=== PATIENT | male | born 1960 | race Caucasian/White ===

== ENCOUNTER 2020-03-20 08:24 | Inpatient (IN) | payer OTHER ==
[~2020-03-20] VITALS: Ht 190.5 cm; Wt 90.7 kg
[2020-03-20] MEDS ORDERED: LOVA10TA PO (08:54)
[2020-03-20] MEDS ORDERED: HYDR-3980 PO (08:54)
--- NOTE | 2020-03-20 09:15 | NUR ---
MS/RN NOTES ADMITTED A MALE PATIENT, AMBULATORY HOME. ALERT AND ORIENTED X4. NO APPARENT RESPIRATORY DISTRESS NOTED. NO COMPLAINED OF PAIN NOTED. SKIN ASSESSMENT WAS DONE. INITIAL VITAL SIGN WAS TAKEN AND RECORDED BP 150/96 P 80 RR 18 TEMP 98.8 SAO2 97%. PATIENT IS FOR DAY SURGERY. WILL CONTINUE TO MONITOR.
--- NOTE | 2020-03-20 11:20 | NUR ---
MS/RN NOTES PATIENT IS OUT IN THE UNIT POT LINING SUPERVISOR BY OR NURSE. PATIENT IN NO APPARENT RESPIRATORY DISTRESS NOTED. NO COMPLAINED OF PAIN NOTED.
[2020-03-20] MEDS ORDERED: TRANEXAMIC ACID 3,000 MG in SODIUM CHLORIDE IRRIG SOLUTION 70 ML IR ONE (12:00)
[2020-03-20] MEDS ORDERED: BACITRACIN 50000 UNITS/VIAL ONE ×2 (12:37→13:20)
[2020-03-20] MEDS ORDERED: FENTANYL PF 100MCG/2ML AMPUL ONE ×2 (12:56→15:01)
[2020-03-20] MEDS ORDERED: KETAMINE HCL (500MG/10ML) 50 MG/ML VIAL ONE (12:57)
[2020-03-20] MEDS ORDERED: SCOPOLAMINE PATCH 1 MG/72HR TD ONE (12:57)
[2020-03-20] MEDS ORDERED: diphenhydrAMINE HCL 25 MG CAPSULE PO PRN (14:00)
[2020-03-20] MEDS ORDERED: MAGNESIUM HYDROXIDE 30 ML UDC PO PRN (14:00)
[2020-03-20] MEDS ORDERED: CLONIDINE HCL 0.1 MG TABLET PO PRN (14:00)
[2020-03-20] MEDS ORDERED: CYCLOBENZAPRINE 10 MG TABLET PO PRN (14:00)
[2020-03-20] MEDS ORDERED: MAG HYDROX/AL HYDROX/SIMETH 30 ML UDC PO PRN (14:00)
[2020-03-20] MEDS ORDERED: ONDANSETRON HCL/PF 4 MG/2 ML VIAL IV PRN (14:00)
[2020-03-20] MEDS ORDERED: HYDROMORPHONE 1 MG/1 ML DISP.SYRIN ONE (14:41)
[2020-03-20] MEDS ORDERED: BISACODYL SUPP (10 MG) 10 MG/SUPP.RECT SUPP.RECT RC PRN (15:00)
[2020-03-20] MEDS ORDERED: SENNOSIDES 8.6 MG TABLET PO PRN (15:00)
[2020-03-20] MEDS ORDERED: ACETAMINOPHEN 325 MG TABLET PO PRN (15:00)
--- NOTE | 2020-03-20 15:40 | NUR ---
MS/RN NOTES PATIENT CAME BACK FROM OR. RECEIVED REPORT FROM ANNA MERRILL DRESSING NURSE PRIOR TO DISCHARGED, WEIGHT BEARING TOLERATED AND MEDICATION WAS FAXED BY ANNA TO THE PHARMACY. V/S BP 106/82 RR 16 TEMP 98.1 SAO2 97% HR 77. WILL CONTINUE TO MONITOR.
--- NOTE | 2020-03-20 15:45 | NUR ---
MS/RN NOTES DR. NICHOL WITT DIET, TRAPEZOID BED, AND WALKER. NOTED AND CARRIED OUT. Addendum: 03/21/20 at 0743 by RYAN TUTTLE RN ERROR
--- NOTE | 2020-03-20 15:45 | NUR ---
MS/RN NOTES DR. COX REGULAR DIET, TRAPEZOID BED, AND WALKER. NOTED AND CARRIED OUT.
[2020-03-20] MEDS: DOCUSATE SODIUM 100 MG CAPSULE PO SCH (16:10)
[2020-03-20] MEDS: IV LR 1000 ML 1,000 ML IV PRN (16:10)
[2020-03-20] MEDS: HYDROMORPHONE 1 MG/1 ML DISP.SYRIN SQ PRN ×2 (16:11→20:48)
[2020-03-20] MEDS: HYDROCODONE/APAP 10/325MG TABLET PO PRN (19:07)
--- NOTE | 2020-03-20 19:33 | NUR ---
MS/RN CLOSING NOTES PATIENT IS ON BED. ALERT AND ORIENTED X4. PATIENT IN NO APPARENT RESPIRATORY DISTRESS NOTED. NO COMPLAINED OF PAIN NOTED AT THIS TIME. IV ACCESS AT LEFT FOREARM # 20 G WITH IV FLUID OF LR 1L AT 100ML/HR ON AND INFUSING WELL. SEEN AND EXAMINED BY MD WITH ORDERS MADE AND CARRIED OUT. ALL DUE MEDICATION WAS ORDER. SAFETY PRECAUTION WAS IN PLACED. BED IN LOWEST POSITION AND LOCKED. SIDERAILS UP X2. CALL LIGHTS WITHIN REACH. WILL ENDORSED TO PRODUCT TESTER [employer] FOR ALESSANDRA.
--- NOTE | 2020-03-20 19:36 | NUR ---
MS RN OPENING NOTES PATIENT AWAKE IN BED. A/OX4. ON RA; NO C/O SOB; BREATHING IS EVEN AND UNLABORED. NO C/O PAIN AT THIS TIME. IV PRESENT ON LEFT FA, SIZE 20, INTACT & PATENT WITH LR RUNNING AT 100 ML/HR. SURGICAL DRESSING ON RIGHT HIP DRY AND INTACT; LEG OFFLOADED WITH PILLOWS. SAFETY MEASURES IN PLACE AND PATIENT'S NEEDS MET. BED LOCKED, HOB ELEVATED, SIDE RAILS X2, CALL LIGHT WITHIN REACH. WILL CONTINUE TO MONITOR.
[2020-03-20 20:00] VITALS: BP 141/87
[2020-03-20] MEDS: ANCEF 1 GM/50 ML D5W IV SCH ×2 (20:58)
[2020-03-20] MEDS: FAMOTIDINE (20 MG) 20 MG TABLET PO SCH (20:59)
[2020-03-20] MEDS: TAMSULOSIN 0.4 MG CAP.SR.24H PO SCH (21:05)
[2020-03-20] MEDS: DRONABINOL (2.5 MG) 2.5 MG CAPSULE PO SCH (21:06)
[2020-03-20] MEDS: MENTHOL/CETYLPYRD (CEPACOL) 1 LOZ LOZENGE PO PRN (22:48)
[2020-03-21] MEDS: HYDROMORPHONE 1 MG/1 ML DISP.SYRIN SQ PRN ×6 (01:22→21:14)
[2020-03-21] MEDS: ZOLPIDEM TARTRATE 5 MG TABLET PO PRN (02:22)
[2020-03-21] MEDS: LORAZEPAM 1 MG TABLET PO PRN (04:13)
[2020-03-21] MEDS: ANCEF 1 GM/50 ML D5W IV SCH ×2 (05:21)
--- NOTE | 2020-03-21 07:40 | NUR ---
MS/RN OPENING NOTES RECEIVED PATIENT ON BED AWAKE ALERT AND ORIENTED X4. PATIENT IN NO APPARENT RESPIRATORY DISTRESS NOTED. NO COMPLAINED OF PAIN AT THIS TIME. WILL CONTINUE TO MONITOR.
--- NOTE | 2020-03-21 07:50 | NUR ---
MS RN CLOSING NOTES PATIENT AWAKE. A/OX4. ON RA; NO C/O SOB; BREATHING IS EVEN AND UNLABORED. NO C/O PAIN AT THIS TIME. IV PRESENT ON LEFT FA, SIZE 20, INTACT & PATENT WITH LR RUNNING AT 100 ML/HR. SURGICAL DRESSING ON RIGHT HIP DRY AND INTACT. SAFETY MEASURES IN PLACE AND PATIENT'S NEEDS MET. BED LOCKED, HOB ELEVATED, SIDE RAILS X2, CALL LIGHT WITHIN REACH. ENDORSED TO DAY SHIFT RN PLAN OF CARE.
[2020-03-21 08:00] VITALS: BP 132/70
[2020-03-21] MEDS: ASPIRIN 325 MG TABLET PO SCH ×2 (08:47→16:59)
[2020-03-21] MEDS: DOCUSATE SODIUM 100 MG CAPSULE PO SCH ×2 (08:47→16:59)
[2020-03-21] MEDS: FAMOTIDINE (20 MG) 20 MG TABLET PO SCH ×4 (08:47→21:23)
[2020-03-21] MEDS: HYDROCODONE/APAP 10/325MG TABLET PO PRN ×2 (09:54→15:47)
[2020-03-21] MEDS: METOPROLOL SUCCINATE 50 MG TAB.SR.24H PO SCH (09:54)
[2020-03-21 09:59] LABS: BASOPHILS % (AUTO) 0.2 % (0.0-2.0); EOSINOPHILS % (AUTO) 0.2 % (0.0-6.0); HEMATOCRIT 39 % (39-51); HEMOGLOBIN 13.1 g/dL (13.5-17.5); LYMPHOCYTES # (AUTO) 2.1 /CMM (0.8-4.8); LYMPHOCYTES % (AUTO) 19.4 % (20.0-44.0); MEAN CORPUSCULAR HGB CONC 34 g/dl (31.0-36.0); MEAN CORPUSCULAR VOLUME 96 fL (80-96); MONOCYTES # (AUTO) 1.1 /CMM (0.1-1.30); MONOCYTES % (AUTO) 10.3 % (2.0-12.0); NEUTROPHILS # (AUTO) 7.6 /CMM (1.8-8.9); NEUTROPHILS % (AUTO) 69.9 % (43.0-81.0); PLATELET COUNT (AUTO) 258 /CMM (150-450); RED BLOOD CELL COUNT(AUTO) 4.08 MIL/uL (4.5-6.0); WHITE BLOOD COUNT (AUTO) 10.8 K/uL (4.3-11.0)
[2020-03-21 10:10] LABS: CALCIUM, SERUM 8.7 mg/dL (8.5-10.1); CREATININE 1.3 mg/dL (0.6-1.3); POTASSIUM 3.6 mmol/L (3.5-5.1)
[2020-03-21 16:00] VITALS: BP 131/74
--- NOTE | 2020-03-21 16:56 | NUR ---
MS/RN NOTES TEMP 100.1 PATIENT REFUSED TO TAKE TYLENOL 650MG 1 TAB P.O. PATIENT COMPLAINED OF SORE THROAT MD IS AWARE. WILL CONTINUE TO MONITOR.
[2020-03-21] MEDS: IV LR 1000 ML 1,000 ML IV PRN (17:00)
--- NOTE | 2020-03-21 17:11 | NUR ---
Patient is alert and oriented, lives locally with a roommate. He used a cane with ambulation prior to admission, he is independent with adl's. POD#1 s/p right JOSEPHINE, current dc plan is ARU vs home . Addendum: 03/21/20 at 1712 by KISHORE PRYOR RN Amended: Links added.
--- NOTE | 2020-03-21 17:25 | NUR ---
MS/RN NOTES TATI JAMILAH ORDER CEPACOL 1 LOZENGES Q 4HRS PRN. NOTED AND CARRIED OUT.
--- NOTE | 2020-03-21 17:29 | NUR ---
MS/RN NOTES DILAUDID 1MG SQ PATIENT REQUEST TO ADMINISTERED IV. MD IS AWARE.
--- NOTE | 2020-03-21 19:32 | NUR ---
MS RN OPENING NOTES PATIENT AWAKE IN BED. A/OX4. ON RA; NO C/O SOB; BREATHING IS EVEN AND UNLABORED. PATIENT C/O SLIGHT RIGHT HIP PAIN. SURGICAL DRESSING ON RIGHT HIP DRY AND INTACT. IV PRESENT ON LEFT FA, SIZE 20, INTACT & PATENT, WITH LR RUNNING AT 100 ML/HR. SAFETY MEASURES IN PLACE AND PATIENT'S NEEDS MET. BED LOCKED, HOB ELEVATED, SIDE RAILS X2, CALL LIGHT WITHIN REACH. WILL CONTINUE TO MONITOR.
--- NOTE | 2020-03-21 19:38 | NUR ---
MS/RN CLOSING NOTES PATIENT IS ALERT AND ORIENTED X4. PATIENT IN NO APPARENT RESPIRATORY DISTRESS NOTED. NO COMPLAINED OF PAIN AT THIS TIME. IV ACCESS AT LEFT FOREARM # 20 G WITH IV FLUID OF OF LR AT 100 ML/HR ON AND INFUSING WELL. SEEN AND EXAMINED BY MD WITH ORDERS MADE AND CARRIED OUT. ALL DUE MEDICATIONS WAS GIVEN. SAFETY PRECAUTIONS WAS IN PLACED. BED IN LOWEST POSITION AND LOCKED. SIDERAILS UP X 2. CALL LIGHT WITHIN REACH. LATEST TEMP 100.2. WILL ENDORSED TO RESTAURANT HOSPITALITY MANAGER FOR ALESSANDRA.
[2020-03-21] MEDS ORDERED: MENTHOL/CETYLPYRD (CEPACOL) 1 LOZ LOZENGE PO PRN (20:00)
[2020-03-21 20:38] VITALS: BP 125/65
[2020-03-21] MEDS: MENTHOL/CETYLPYRD (CEPACOL) 1 LOZ LOZENGE PO PRN (21:13)
[2020-03-21] MEDS: TAMSULOSIN 0.4 MG CAP.SR.24H PO SCH (21:13)
--- NOTE | 2020-03-21 21:14 | NUR ---
MS RN NOTES PATIENT C/O OF RIGHT HIP PAIN RATED 10/10. PATIENT STATED HE PREFERRED MEDICATION VIA IV RATHER THAN SUBCUTANEOUS. ADMINISTERED PRN DILAUDID IM IV. VITAL SIGNS WNL. SAFETY MEASURES IN PLACE. WILL CONTINUE TO MONITOR.
[2020-03-21] MEDS: DRONABINOL (2.5 MG) 2.5 MG CAPSULE PO SCH (22:41)
[2020-03-22] MEDS: ZOLPIDEM TARTRATE 5 MG TABLET PO PRN (00:30)
[2020-03-22 04:00] VITALS: BP 122/86
[2020-03-22] MEDS: HYDROMORPHONE 1 MG/1 ML DISP.SYRIN SQ PRN ×3 (04:13→23:41)
--- NOTE | 2020-03-22 07:18 | NUR ---
MS RN NOTES PATIENT IN BED EYES CLOSED, EASILY AWAKEN.ALERT ORIENTED X 4. NO ACUTE DISTRESS NOTED. NO SOB NOTED. NO FACIAL GRIMACING NOTED. IV ACCESS PATENT AND INTACT, NO REDNESS, NO SWELLING NOTED. HEAD OF BED ELEVATED. SAFETY MEASURES IN PLACE. CALL LIGHT WITHIN REACH. WILL CONTINUE TO MONITOR ACCORDINGLY.
--- NOTE | 2020-03-22 07:39 | NUR ---
MS RN CLOSING NOTES PATIENT SLEEPING, EASY TO AWAKEN. A/OX4. ON RA; NO C/O SOB; BREATHING IS EVEN AND UNLABORED. SURGICAL DRESSING ON RIGHT HIP DRY AND INTACT. IV PRESENT ON LEFT FA, SIZE 20, INTACT & PATENT, HEP LOCKED. SAFETY MEASURES IN PLACE AND PATIENT'S NEEDS MET. BED LOCKED, HOB ELEVATED, SIDE RAILS X2, CALL LIGHT WITHIN REACH. ENDORSED TO DAY SHIFT RN PLAN OF CARE.
[2020-03-22 08:00] VITALS: BP 128/84
[2020-03-22] MEDS: ASPIRIN 325 MG TABLET PO SCH ×2 (08:50→17:33)
[2020-03-22] MEDS: DOCUSATE SODIUM 100 MG CAPSULE PO SCH ×2 (08:50→17:33)
[2020-03-22] MEDS: FAMOTIDINE (20 MG) 20 MG TABLET PO SCH ×2 (08:51→20:31)
[2020-03-22] MEDS: METOPROLOL SUCCINATE 50 MG TAB.SR.24H PO SCH (08:51)
[2020-03-22] MEDS ORDERED: HYDROMORPHONE 1 MG/1 ML DISP.SYRIN SQ ONE (09:05)
[2020-03-22] MEDS: HYDROCODONE/APAP 10/325MG TABLET PO PRN ×3 (09:18→20:29)
--- NOTE | 2020-03-22 09:30 | NUR ---
MS RN NOTES PATIENT SEEN AND EVALUATED BY DR CAMARGO WITH NEW ORDERS MADE, NOTED AND CARRIED OUT. DILAUDID GIVEN ORDERED, VITAL SIGNS WITHIN NORMAL LIMIT
--- NOTE | 2020-03-22 12:17 | NUR ---
MS RN NOTES PATIENT COMPLAINT OF RIGHT HIP PAIN, NORCO GIVEN ORDERED. VITAL SIGNS WITHIN NORMAL LIMITS.
[2020-03-22] MEDS: IV LR 1000 ML 1,000 ML IV PRN (14:55)
[2020-03-22 16:00] VITALS: BP 128/66
--- NOTE | 2020-03-22 19:00 | NUR ---
MS RN NOTES PATIENT IN BED ALERT ORIENTED X 4. NO ACUTE DISTRESS NOTED. NO SOB NOTED. PATIENT COMFORTABLE, NO FACIAL GRIMACING NOTED. IV ACCESS PATENT AND INTACT, NO REDNESS, NO SWELLING NOTED. NEEDS ATTENDED AND ANTICIPATED. SAFETY MEASURES IN PLACE. CALL LIGHT WITHIN REACH. WILL ENDORSE TO NIGHT NURSE FOR CONTINUITY OF CARE.
--- NOTE | 2020-03-22 19:47 | NUR ---
MS/RN OPENING NOTE Patient asleep in bed, A/O x4, ambulatory with assist. Patient denies pain, nausea, vomiting, diarrhea. Breath sounds even, clear, unlabored, no acute distress or SOB. PERRLA. CRP <3seconds. No JVD. Brachial and pedal pulses 2+, symmetrical. Skin warm, pink, dry, appropriate for ethnicity. IV site LFA 20g running LR 100 ml/hr, no signs of redness or infiltration. Abdomen round, soft, non-tender. BS active. Flatus present. Patient on regular diet, appetite good. Patient void via urinal/BRP. Urine output clear, yellow, without difficulty. Bed in low position, wheels locked, side rails up x2, call light within reach.
[2020-03-22 20:00] VITALS: BP 125/71
[2020-03-22 20:38] VITALS: BP 125/71
[2020-03-22] MEDS: DRONABINOL (2.5 MG) 2.5 MG CAPSULE PO SCH (21:30)
[2020-03-22] MEDS: TAMSULOSIN 0.4 MG CAP.SR.24H PO SCH (21:31)
[2020-03-23] MEDS: HYDROMORPHONE 1 MG/1 ML DISP.SYRIN SQ PRN ×3 (05:25→12:06)
--- NOTE | 2020-03-23 07:20 | NUR ---
MS/RN CLOSING NOTE Patient asleep in bed, A/O x4, ambulatory with assist. Patient denies pain, nausea, vomiting, diarrhea. Breath sounds even, clear, unlabored, no acute distress or SOB. Skin warm, pink, dry, appropriate for ethnicity. IV site LFA 20g running LR 100 ml/hr, no signs of redness or infiltration. Patient on regular diet, appetite good. Patient void via urinal/BRP. Urine output clear, yellow, without difficulty. Bed in low position, wheels locked, side rails up x2, call light within reach.
--- NOTE | 2020-03-23 07:27 | NUR ---
RN MS OPENING NOTES RECEIVED PATIENT AWAKE, A/OX4 RESTING COMFORTABLY IN BED. PATIENT IS ON RA WITH NO C/O OR S/S OF SOB, BREATHING IS EVEN AND UNLABORED, NO ACUTE RESPIRATORY DISTRESS NOTED. PATIENT C/O RIGHT HIP PAIN 8-9/10 ON PAIN SCALE. SURGICAL DRESSING ON RIGHT HIP DRY AND INTACT. IV TO LFA #20G PATENT AND INTACT, FLUSHING WELL NO S/S OF INFILTRATION NOTED, NO SWELLING NO REDNESS.BED IS AT LOWEST AND LOCKED POSITION WITH SIDE RAILS UP X2, AND CALL LIGHT WITHIN REACH. ALL SAFETY MEASURES IN PLACE. WILL CONTINUE TO MONITOR PATIENT THROUGH SHIFT.
[2020-03-23 08:00] VITALS: BP 111/86
[2020-03-23] MEDS: METOPROLOL SUCCINATE 50 MG TAB.SR.24H PO SCH (08:35)
[2020-03-23] MEDS: ASPIRIN 325 MG TABLET PO SCH (08:36)
[2020-03-23] MEDS: DOCUSATE SODIUM 100 MG CAPSULE PO SCH (08:36)
[2020-03-23] MEDS: FAMOTIDINE (20 MG) 20 MG TABLET PO SCH (08:36)
[2020-03-23] MEDS ORDERED: DOCU-141 PO (09:31)
[2020-03-23] MEDS ORDERED: ASPI-992 PO (09:31)
[2020-03-23] MEDS: LORAZEPAM 1 MG TABLET PO PRN (12:52)
[2020-03-23 16:00] VITALS: BP 129/76
--- NOTE | 2020-03-23 16:25 | NUR ---
RN MS NOTES D/C ORDER RECEIVED FROM DR. ASKEW. PATIENT INFORMED OF DISCHARGE TO HOME WITH HOME HEALTH PHYSICAL THERAPY. PT IN STABLE CONDITION FOR DISCHARGE. MEDICATION, DISCHARGE INSTRUCTIONS AND EDUCATION PROVIDED TO PATIENT. INSTRUCTED PATIENT TO F/U WITH ORTHO SURGEON IN 2 WEEKS OR SOONER IF PROBLEMS OCCUR WITH RT HIP SURGERY. PT VERBALIZED UNDERSTANDING. BELONGINGS CHECKED AND SIGNED. SKIN CHECK DONE. SKIN INTACT. NO FC IN PLACE, IV TO LFA REMOVED, ID BAND REMOVED, PT ACCOMPANIED TO [facility] BY THEODORE DANG VIA . PATIENT WAS PICKED UP BY FRIEND AND LEFT VIA PRIVATE CAR IN STABLE CONDITION.
== END 2020-03-23 16:00 | disposition home health service (06) | DRG 470 ==
LOC: DS 08:24 → MED 08:25
PROVIDERS: ADMIT Nurse Practitioner Acute Care; ATTEND Nurse Practitioner Acute Care
PROC: 0SR90JZ Replacement of Right Hip Joint with Synthetic Substitute, Open Approach (ICD-10-PCS; principal; 2020-03-20)
DX: M16.11 Unilateral primary osteoarthritis, right hip (principal); E78.5 Hyperlipidemia, unspecified; F41.9 Anxiety disorder, unspecified; F12.90 Cannabis use, unspecified, uncomplicated; I10 Essential (primary) hypertension; G47.00 Insomnia, unspecified
CPT/HCPCS: 36415; 80048-TC; 85025-TC; 86850-TC; 87081-TC; 88305-TC; 88311-TC; 93970-TC; 97110-TC; 97116-TC; 97530-TC; A4217; A6209; A6402; C1776; G0378; J0330; J0690; J1100; J1170; J1885; J2405; J2704; J3010; J3490; J7030; J7060; J7120; Q0167

== ENCOUNTER 2020-03-24 09:18 | Emergency (ER) | payer OTHER ==
[~2020-03-24] VITALS: Ht 185.4 cm; Wt 90.7 kg
[~2020-03-24 09:18] MED LIST: ASPI-992 PO; DOCU-141 PO; HYDR-3980 PO; LOVA10TA PO
[2020-03-24 09:33] VITALS: BP 127/78
--- NOTE | 2020-03-24 10:08 | NUR ---
Patient discharged to home in stable condition. Written and verbal after care instructions given. Patient verbalizes understanding of instruction.
== END 2020-03-24 10:14 | disposition home or self-care (01) ==
LOC: ER 09:20
DX: G89.18 Other acute postprocedural pain (principal); R22.41 Localized swelling, mass and lump, right lower limb; I10 Essential (primary) hypertension; Z98.890 Other specified postprocedural states; Z88.2 Allergy status to sulfonamides; Z88.8 Allergy status to other drugs, medicaments and biological substances; Z88.1 Allergy status to other antibiotic agents; Z79.82 Long term (current) use of aspirin; Z79.899 Other long term (current) drug therapy